=== PATIENT | female | born 1995 | race Caucasian/White ===

== ENCOUNTER 2023-03-15 17:09 | Emergency (ER) | payer OTHER ==
[~2023-03-15] VITALS: Ht 167.6 cm; Wt 77.6 kg
[2023-03-15 20:24] VITALS: BP 128/81; TEMP 98.2; O2SAT 100
[2023-03-15] MEDS ORDERED: CIPR0.3S37 OD (20:29)
[2023-03-15] MEDS ORDERED: OLOP5DRO17 OP (20:29)
== END 2023-03-15 21:40 | disposition home or self-care (01) ==
LOC: M ED 17:09
DX: H00.012 Hordeolum externum right lower eyelid (principal); Z79.2 Long term (current) use of antibiotics; Z79.899 Other long term (current) drug therapy